=== PATIENT | female | born 1955 | race African-American/Black ===

== ENCOUNTER 2017-03-02 20:31 | Emergency (ER) | payer BC ==
[~2017-03-02] VITALS: Ht 170.2 cm; Wt 59.4 kg
[~2017-03-02 20:31] MED LIST: METOPROLOL; [UNRECOGNIZED DRUG - OTHER]
--- NOTE | 2017-03-02 23:16 | NUR ---
Patient discharged to home in stable conditon. Written and verbal after care instructions given. Patient verbalizes understanding of instructions.
== END 2017-03-02 23:17 | disposition home or self-care (01) ==
LOC: ER 20:32
DX: G43.909 Migraine, unspecified, not intractable, without status migrainosus (principal); H61.21 Impacted cerumen, right ear; I10 Essential (primary) hypertension
CPT/HCPCS: 36415; 85651; 96372; 99283; A4663; J1170; Q0162

== ENCOUNTER 2018-06-09 11:21 | Emergency (ER) | END 2018-06-09 12:39 | disposition home or self-care (01) | DX: T81.40XA Infection following a procedure, unspecified, initial encounter (principal); G43.909 Migraine, unspecified, not intractable, without status migrainosus; I10 Essential (primary) hypertension ==

== ENCOUNTER 2018-06-20 05:20 | Emergency (ER) | payer BC ==
[~2018-06-20] VITALS: Ht 170.2 cm; Wt 62.6 kg
[2018-06-20 06:59] LABS: BASOPHILS # (AUTO) 0.1 K/uL (0.0-8.0); BASOPHILS % (AUTO) 1.4 % (0.0-2.0); EOSINOPHILS # (AUTO) 0.2 K/uL (0.0-0.7); EOSINOPHILS % (AUTO) 3.9 % (0.0-7.0); HEMATOCRIT 43.9 % (31.2-41.9); HEMOGLOBIN 14.9 g/dL (10.9-14.3); LYMPHOCYTES # (AUTO) 1.6 K/uL (20.0-40.0); LYMPHOCYTES % (AUTO) 25.4 % (20.5-51.5); MEAN CORPUSCULAR HEMOGLOBIN 29.6 uug (24.7-32.8); MEAN CORPUSCULAR HGB CONC 34 g/dL (32.3-35.6); MEAN CORPUSCULAR VOLUME 86.9 fL (75.5-95.3); MONOCYTES # (AUTO) 0.5 K/uL (2.0-10.0); MONOCYTES % (AUTO) 8.5 % (0.0-11.0); NEUTROPHILS # (AUTO) 3.8 K/uL (1.8-8.9); NEUTROPHILS % (AUTO) 60.8 % (38.5-71.5); PLATELET COUNT (AUTO) 260 K/uL (179-408); RED BLOOD CELL COUNT(AUTO) 5.05 MIL/uL (3.63-4.92); WHITE BLOOD COUNT (AUTO) 6.2 K/uL (3.8-11.8)
[2018-06-20 07:06] LABS: POTASSIUM 3.2 mmol/L (3.5-5.1)
[2018-06-20 07:12] LABS: BILIRUBIN,DIRECT 0.1 mg/dL (0.0-0.2); BILIRUBIN,TOTAL 0.6 mg/dL (0.2-1.0); TOTAL PROTEIN, SERUM 7.2 g/dL (6.4-8.2)
[2018-06-20] MEDS ORDERED: LIDOCAINE VISCUS 2% 15 ML UDC MM ONE (07:30)
[2018-06-20] MEDS ORDERED: MAG HYDROX/AL HYDROX/SIMETH 30 ML LIQUID UDC PO ONE (07:30)
[2018-06-20] MEDS ORDERED: LIDOCAINE VISCUS 2% 15 ML UDC ONE (07:35)
[2018-06-20] MEDS ORDERED: MAG HYDROX/AL HYDROX/SIMETH 30 ML LIQUID UDC ONE (07:35)
--- NOTE | 2018-06-20 07:58 | NUR ---
hospital breakfast tray provided for pt.
[2018-06-20 08:04] VITALS: BP 121/81
== END 2018-06-20 08:06 | disposition home or self-care (01) ==
LOC: ER 05:23
DX: R07.89 Other chest pain (principal); R21 Rash and other nonspecific skin eruption; I10 Essential (primary) hypertension; Z79.899 Other long term (current) drug therapy
CPT/HCPCS: 36415; 70030-TC; 71045; 85025; 93005; A4663

== ENCOUNTER 2022-09-10 09:30 | Emergency (ER) | payer MEDICARE, BC ==
[~2022-09-10] VITALS: Ht 170.2 cm; Wt 63.5 kg
--- NOTE | 2022-09-10 10:06 | NUR ---
[email or web address], medical screening exam in progress
[2022-09-10] MEDS ORDERED: hydrOXYzine HCL 10 MG TABLET PO ONE (10:15)
[2022-09-10] MEDS ORDERED: OXYCODONE HCL 5 MG TABLET PO ONE (10:15)
[2022-09-10] MEDS ORDERED: hydrOXYzine HCL 10 MG TABLET ONE (10:22)
[2022-09-10] MEDS ORDERED: OXYCODONE HCL 5 MG TABLET ONE (10:22)
[2022-09-10] MEDS ORDERED: HYDR-501 PO (11:22)
--- NOTE | 2022-09-10 11:26 | NUR ---
Extra dressings were provided per patient's request. Patient wants "lloyd lloyd"MD at bedside.
--- NOTE | 2022-09-10 11:28 | NUR ---
Patient is pending discharge but patient does not want to leave ER until the "cortisone shot" was given in ER. Dr Sophy EPTERS is now waiting for ortho surgeon's callback to discuss re: need for "cortisone shot"
--- NOTE | 2022-09-10 12:20 | NUR ---
Patient now agrees to being discharge after talking to her own ortho-surgeon and after our MD talked to her surgeon/assistant professor of radiology.
--- NOTE | 2022-09-10 12:21 | NUR ---
Patient discharged to home by Dr Beckett in stable condition with brisk steady gait. Written and verbal after care instructions given to patient. Patient verbalized understanding and compliance of instructions. Stressed follow up with primary doctor and ortho-surgeon or return to ER for worsening s/s.
[2022-09-10 12:25] VITALS: BP 121/83
== END 2022-09-10 12:23 | disposition home or self-care (01) ==
LOC: ER 09:32
DX: R21 Rash and other nonspecific skin eruption (principal); L25.9 Unspecified contact dermatitis, unspecified cause; G43.909 Migraine, unspecified, not intractable, without status migrainosus; Z79.899 Other long term (current) drug therapy
CPT/HCPCS: A4663

== ENCOUNTER 2024-05-22 18:08 | Emergency (ER) | payer BC, MEDICARE ==
[~2024-05-22] VITALS: Ht 170.2 cm; Wt 61.2 kg
[~2024-05-22 18:08] MED LIST changes: +HYDR-501 PO
[2024-05-22 19:13] LABS: BASOPHILS # (AUTO) 0.1 K/UL (0.0-0.2); BASOPHILS % (AUTO) 0.6 % (0.0-2.0); EOSINOPHILS # (AUTO) 0.3 K/uL (0.0-0.7); EOSINOPHILS % (AUTO) 2.3 % (0.0-7.0); HEMATOCRIT 42.9 % (31.2-41.9); HEMOGLOBIN 14.5 g/dL (10.9-14.3); LYMPHOCYTES # (AUTO) 1.9 K/uL (0.8-4.8); LYMPHOCYTES % (AUTO) 15.9 % (20.5-51.5); MEAN CORPUSCULAR HEMOGLOBIN 29.1 uug (24.7-32.8); MEAN CORPUSCULAR HGB CONC 34 g/dL (32.3-35.6); MEAN CORPUSCULAR VOLUME 86.1 fL (75.5-95.3); MONOCYTES # (AUTO) 0.9 K/uL (0.1-1.30); MONOCYTES % (AUTO) 7.3 % (0.0-11.0); NEUTROPHILS # (AUTO) 8.8 K/uL (1.8-8.9); NEUTROPHILS % (AUTO) 73.9 % (38.5-71.5); PLATELET COUNT (AUTO) 323 K/uL (179-408); RED BLOOD CELL COUNT(AUTO) 4.98 MIL/uL (3.63-4.92); RED CELL DISTRIBUTION WIDTH 13.7 % (12.3-17.7)
[2024-05-22 19:19] LABS: DIFFERENTIAL COMMENT 1
[2024-05-22 19:24] LABS: CALCIUM 9.5 mg/dL (8.5-10.1); CREATININE 0.9 mg/dL (0.6-1.3); POTASSIUM 3.1 mmol/L (3.5-5.1)
[2024-05-22] MEDS ORDERED: TDAP DIPH,PERTUSS,TET VAC/PF 0.5 ML DISP.SYRIN IM ONE (19:27)
[2024-05-22] MEDS ORDERED: KETOROLAC TROMETHAMINE 30 MG INJ ONE (19:28)
[2024-05-22 19:36] LABS: BILIRUBIN,TOTAL 0.7 mg/dL (0.2-1.0); TOTAL PROTEIN, SERUM 7.2 g/dL (6.4-8.2)
[2024-05-22] MEDS: TDAP DIPH,PERTUSS,TET VAC/PF 0.5 ML DISP.SYRIN IM ONE (20:15)
[2024-05-22] MEDS: KETOROLAC TROMETHAMINE 30 MG INJ IVP ONE (20:30)
[2024-05-22] MEDS ORDERED: NAPR500T6 PO (21:15)
[2024-05-22 22:13] VITALS: BP 151/97; TEMP 98.8; O2SAT 96
== END 2024-05-22 22:00 | disposition home or self-care (01) ==
LOC: ER 18:08
DX: S83.8X2A Sprain of other specified parts of left knee, initial encounter (principal); S61.411A Laceration without foreign body of right hand, initial encounter; R06.02 Shortness of breath; R51.9 Headache, unspecified; M79.605 Pain in left leg; M17.12 Unilateral primary osteoarthritis, left knee; Z88.7 Allergy status to serum and vaccine; Z88.8 Allergy status to other drugs, medicaments and biological substances; Z91.041 Radiographic dye allergy status; W18.39XA Other fall on same level, initial encounter; Y93.89 Activity, other specified; Y92.89 Other specified places as the place of occurrence of the external cause; Y99.8 Other external cause status
CPT/HCPCS: 36415; 70450; 71045; 72192; 73130; 73502; 73700; 84484; 85025; 90715; A4606; A4663; J1885